=== PATIENT | male | born 1975 | race Caucasian/White ===

== ENCOUNTER 2023-06-19 14:43 | Emergency (ER) | payer MEDICAID ==
[~2023-06-19] VITALS: Ht 165.1 cm; Wt 102.6 kg
[2023-06-19] MEDS ORDERED: FLUT50SP17 ×2 (15:02→15:35)
[2023-06-19] MEDS ORDERED: QUET300T2 (15:02)
[2023-06-19] MEDS ORDERED: HALO5TAB33 (15:02)
[2023-06-19] MEDS ORDERED: BENZ1TAB5 (15:02)
[2023-06-19] MEDS ORDERED: PANT40TA29 (15:02)
[2023-06-19] MEDS ORDERED: OYST500T12 (15:02)
[2023-06-19] MEDS ORDERED: QUET200T2 (15:02)
[2023-06-19] MEDS ORDERED: PRAZ5CAP (15:02)
[2023-06-19] MEDS ORDERED: GABA-1171 (15:02)
[2023-06-19] MEDS ORDERED: ATOR40TA75 (15:02)
[2023-06-19] MEDS ORDERED: ZOLO100T (15:02)
[2023-06-19] MEDS ORDERED: PRAZ2CAP (15:02)
[2023-06-19] MEDS ORDERED: PRAZ2CAP PO (15:28)
[2023-06-19] MEDS ORDERED: PRAZ5CAP PO (15:28)
[2023-06-19] MEDS ORDERED: QUET200T2 PO (15:29)
[2023-06-19] MEDS ORDERED: SERO50TA PO (15:30)
[2023-06-19] MEDS ORDERED: SERO1TAB2 PO (15:30)
[2023-06-19] MEDS ORDERED: ZOLO100T PO (15:31)
[2023-06-19] MEDS ORDERED: ATOR40TA75 PO (15:32)
[2023-06-19] MEDS ORDERED: PANT40TA29 PO (15:33)
[2023-06-19] MEDS ORDERED: BENZ1TAB5 PO (15:33)
[2023-06-19] MEDS ORDERED: HALO5TAB33 PO (15:36)
[2023-06-19] MEDS ORDERED: OYST500T92 PO (15:38)
[2023-06-19] MEDS ORDERED: GABA-1171 PO (15:39)
[2023-06-19 16:02] VITALS: BP 131/76; TEMP 97.7; O2SAT 98
== END 2023-06-19 16:09 | disposition home or self-care (01) ==
LOC: M ED 14:43
DX: Z76.0 Encounter for issue of repeat prescription (principal); F99 Mental disorder, not otherwise specified; I10 Essential (primary) hypertension; E78.5 Hyperlipidemia, unspecified; F17.200 Nicotine dependence, unspecified, uncomplicated; Z88.8 Allergy status to other drugs, medicaments and biological substances; Z79.02 Long term (current) use of antithrombotics/antiplatelets; Z79.83 Long term (current) use of bisphosphonates; Z79.891 Long term (current) use of opiate analgesic; Z79.899 Other long term (current) drug therapy

== ENCOUNTER → 2023-09-05 | Outpatient (REF) | payer MEDICAID ==
[~2023-09-05] MED LIST: ADVI100C PO; ADVI200T PO; ATOR40TA75; ATOR40TA75 PO; BENZ1TAB5; BENZ1TAB5 PO; FLUTISP; FLUTISP NARES; GABA-1171; GABA-1171 PO; HALO5TAB33; HALO5TAB33 PO; OYST500T10 PO; OYST500T12; OYST500T92 PO; PANT40TA29; PANT40TA29 PO; PRAZ2CAP; PRAZ2CAP PO; PRAZ5CAP; PRAZ5CAP PO; QUET200T2; QUET200T2 PO; QUET300T2; QUET300T2 PO; SERO1TAB2 PO; SERO50TA PO; ZOLO100T; ZOLO100T PO
[2023-09-05 17:10] LABS: HEMOGLOBIN A1c 5.5 % (4.0-6.0)
[2023-09-05 17:33] LABS: ALBUMIN 3.5 G/DL (3.2-5.2); ALKALINE PHOSPHATASE 87 U/L (46-116); ALT/SGPT 16 U/L (7.0-40); AST/SGOT 16 U/L (<34); BILIRUBIN,TOTAL 0.3 MG/DL (0.3-1.2); BLOOD UREA NITROGEN 9 MG/DL (9-23); CALCIUM LEVEL 9.6 MG/DL (8.5-10.1); CARBON DIOXIDE LEVEL 27 MMOL/L (20-31); CHLORIDE LEVEL 104 MMOL/L (98-107); CHOLESTEROL LEVEL 266 MG/DL (<200); CHOLESTEROL RISK RATIO 7.73 (<5); GLOMERULAR FILTRATION RATE > 60.0 (>60); GLUCOSE, FASTING 104 MG/DL (60-100); HDL CHOLESTEROL 34.4 MG/DL (>40); LDL CHOLESTEROL 159.4 MG/DL (<100); NON-HDL-C 231.6 MG/DL; POTASSIUM SERUM 3.6 MMOL/L (3.5-5.1); SODIUM LEVEL 134 MMOL/L (136-145); TOTAL PROTEIN 7.2 G/DL (5.7-8.2); TRIGLYCERIDES LEVEL 361 MG/DL (<150)
[2023-09-05 17:34] LABS: THYROID STIMULATING HORMONE 1.942 uIU/ML (0.55-4.78)
[2023-09-05 17:35] LABS: TOTAL 25(OH) VITAMIN D 24.9 NG/ML (20.0-100.0)
== END ==
LOC: M LAB REF 16:28
PROVIDERS: ATTEND Nurse Practitioner Family
DX: E78.5 Hyperlipidemia, unspecified (principal); E55.9 Vitamin D deficiency, unspecified; Z13.1 Encounter for screening for diabetes mellitus

== ENCOUNTER → 2023-09-11 | Outpatient (CLI) | payer MEDICAID ==
[2023-09-11 15:23] LABS: BASO # 0.1 10^3/uL (0.0-0.2); BASO % 0.9 % (0.0-1.0); EOS # 0.2 10^3/uL (0.0-0.5); EOS % 2.3 % (0.0-3.0); HEMATOCRIT 41.6 % (42.0-52.0); HEMOGLOBIN 13.5 g/dl (13.5-17.5); LYMPH % 28.8 % (24.0-44.0); MEAN CORPUSCULAR HEMOGLOBIN 28.9 pg (27.0-33.0); MEAN CORPUSCULAR HGB CONC 32.5 g/dl (32.0-36.5); MEAN CORPUSCULAR VOLUME 89.1 fl (80.0-96.0); MONO # 0.6 10^3/uL (0.0-0.8); MONO % 8.7 % (2.0-8.0); NEUTROPHILS % 58.3 % (36.0-66.0); PLATELET COUNT, AUTOMATED 331 10^3/uL (150-450); RED BLOOD COUNT 4.67 10^6/uL (4.30-6.10); WHITE BLOOD COUNT 6.8 10^3/uL (4.0-10.0)
[2023-09-11 15:52] LABS: TESTOSTERONE 19 NG/DL (241-827)
[2023-09-11 15:53] LABS: ALBUMIN 3.4 G/DL (3.2-5.2); ALKALINE PHOSPHATASE 86 U/L (46-116); ALT/SGPT 16 U/L (7.0-40); AST/SGOT 16 U/L (<34); BILIRUBIN,TOTAL 0.3 MG/DL (0.3-1.2); BLOOD UREA NITROGEN 9 MG/DL (9-23); CALCIUM LEVEL 9.4 MG/DL (8.5-10.1); CARBON DIOXIDE LEVEL 27 MMOL/L (20-31); CHLORIDE LEVEL 102 MMOL/L (98-107); CHOLESTEROL LEVEL 270 MG/DL (<200); CHOLESTEROL RISK RATIO 7.62 (<5); CREATININE FOR GFR 0.95 MG/DL (0.70-1.30); GLOMERULAR FILTRATION RATE > 60.0 (>60); GLUCOSE, FASTING 104 MG/DL (60-100); HDL CHOLESTEROL 35.4 MG/DL (>40); LDL CHOLESTEROL 162.6 MG/DL (<100); NON-HDL-C 234.6 MG/DL; POTASSIUM SERUM 4.2 MMOL/L (3.5-5.1); SODIUM LEVEL 137 MMOL/L (136-145); TOTAL PROTEIN 6.9 G/DL (5.7-8.2); TRIGLYCERIDES LEVEL 360 MG/DL (<150)
== END ==
LOC: M PLALAB 10:08
PROVIDERS: ATTEND Nurse Practitioner Family
DX: Z51.81 Encounter for therapeutic drug level monitoring (principal); F43.0 Acute stress reaction; F65.89 Other paraphilias

== ENCOUNTER → 2023-12-16 | Outpatient (REF) | payer MEDICAID ==
[2023-12-16 18:23] LABS: ALBUMIN 3.4 G/DL (3.2-5.2); ALKALINE PHOSPHATASE 87 U/L (46-116); ALT/SGPT 16 U/L (7.0-40); AST/SGOT 18 U/L (<34); BILIRUBIN,TOTAL 0.2 MG/DL (0.3-1.2); BLOOD UREA NITROGEN 7 MG/DL (9-23); CALCIUM LEVEL 9.2 MG/DL (8.5-10.1); CARBON DIOXIDE LEVEL 26 MMOL/L (20-31); CHLORIDE LEVEL 103 MMOL/L (98-107); CHOLESTEROL LEVEL 276 MG/DL (<200); CHOLESTEROL RISK RATIO 8.02 (<5); CREATININE FOR GFR 0.83 MG/DL (0.70-1.30); GLOMERULAR FILTRATION RATE > 60.0 (>56); GLUCOSE, FASTING 92 MG/DL (60-100); HDL CHOLESTEROL 34.4 MG/DL (>40); NON-HDL-C 241.6 MG/DL; POTASSIUM SERUM 4.6 MMOL/L (3.5-5.1); SODIUM LEVEL 136 MMOL/L (136-145); TOTAL PROTEIN 6.7 G/DL (5.7-8.2); TRIGLYCERIDES LEVEL 328 MG/DL (<150)
== END ==
LOC: M LAB REF 16:30
PROVIDERS: ATTEND Physician Assistant
DX: E78.5 Hyperlipidemia, unspecified (principal)

== ENCOUNTER → 2024-01-16 | Outpatient (CLI) | payer MEDICAID | LOC: M RAD 12:20 | PROVIDERS: ATTEND Physician Assistant | DX: Z12.2 Encounter for screening for malignant neoplasm of respiratory organs (principal); F17.210 Nicotine dependence, cigarettes, uncomplicated ==

== ENCOUNTER → 2024-02-24 | Outpatient (REF) | payer MEDICAID ==
[2024-02-24 18:50] LABS: ALBUMIN 3.8 G/DL (3.2-5.2); ALKALINE PHOSPHATASE 99 U/L (46-116); ALT/SGPT 15 U/L (7.0-40); AST/SGOT 12 U/L (<34); BILIRUBIN,TOTAL 0.2 MG/DL (0.3-1.2); BLOOD UREA NITROGEN 15 MG/DL (9-23); CALCIUM LEVEL 9.8 MG/DL (8.5-10.1); CARBON DIOXIDE LEVEL 28 MMOL/L (20-31); CHLORIDE LEVEL 102 MMOL/L (98-107); CHOLESTEROL LEVEL 191 MG/DL (<200); CHOLESTEROL RISK RATIO 4.41 (<5); CREATININE FOR GFR 0.92 MG/DL (0.70-1.30); GLOMERULAR FILTRATION RATE > 60.0 (>56); GLUCOSE, FASTING 74 MG/DL (60-100); HDL CHOLESTEROL 43.3 MG/DL (>40); LDL CHOLESTEROL 81.7 MG/DL (<100); NON-HDL-C 147.7 MG/DL; POTASSIUM SERUM 4.6 MMOL/L (3.5-5.1); PROSTATIC SPECIFIC AG MONITOR 0.06 NG/ML (< 4.00); SODIUM LEVEL 136 MMOL/L (136-145); TOTAL PROTEIN 7.3 G/DL (5.7-8.2); TRIGLYCERIDES LEVEL 330 MG/DL (<150)
== END ==
LOC: M LAB REF 17:23
PROVIDERS: ATTEND Physician Assistant
DX: E78.5 Hyperlipidemia, unspecified (principal); Z12.5 Encounter for screening for malignant neoplasm of prostate; L65.9 Nonscarring hair loss, unspecified

== ENCOUNTER → 2024-04-14 | Outpatient (REF) | payer OTHER, MEDICAID ==
[2024-04-14 17:49] LABS: THYROID STIMULATING HORMONE 6.362 uIU/ML (0.55-4.78)
== END ==
LOC: M LAB REF 16:37
PROVIDERS: ATTEND Physician Assistant
DX: Z51.81 Encounter for therapeutic drug level monitoring (principal); E89.5 Postprocedural testicular hypofunction; E03.9 Hypothyroidism, unspecified

== ENCOUNTER → 2024-04-21 | Outpatient (CLI) | payer OTHER, MEDICAID | LOC: M PLALAB 12:25 | PROVIDERS: ATTEND Nurse Practitioner Family | DX: Z51.81 Encounter for therapeutic drug level monitoring (principal); Z79.899 Other long term (current) drug therapy ==

== ENCOUNTER → 2024-05-27 | Outpatient (REF) | payer OTHER | LOC: M LAB REF 16:43 | PROVIDERS: ATTEND Physician Assistant | DX: E03.9 Hypothyroidism, unspecified (principal) ==

== ENCOUNTER → 2024-08-18 | Outpatient (CLI) | payer OTHER ==
[~2024-08-18] MED LIST changes: +ELIGARD SQ; +LEVO50TA5 PO; +MM S100C PO; +NEUR100C PO; +SENN-187 PO; +TRAZ-252 PO
== END ==
LOC: M WHC 08:59
PROVIDERS: ATTEND Physician Assistant
DX: Z13.820 Encounter for screening for osteoporosis (principal)

== ENCOUNTER → 2024-08-20 | Outpatient (REF) | payer OTHER ==
[2024-08-20 18:34] LABS: ALBUMIN 3.7 G/DL (3.2-5.2); ALKALINE PHOSPHATASE 81 U/L (40-129); ALT/SGPT 25 U/L (7.0-40); AST/SGOT 15 U/L (<34); BILIRUBIN,TOTAL 0.2 MG/DL (0.3-1.2); BLOOD UREA NITROGEN 19 MG/DL (9-23); CALCIUM LEVEL 9.1 MG/DL (8.5-10.1); CARBON DIOXIDE LEVEL 26 MMOL/L (20-31); CHLORIDE LEVEL 110 MMOL/L (98-107); CHOLESTEROL LEVEL 150 MG/DL (<200); CHOLESTEROL RISK RATIO 4.13 (<5); GLOMERULAR FILTRATION RATE > 60.0 (>56); GLUCOSE, FASTING 88 MG/DL (60-100); HDL CHOLESTEROL 36.3 MG/DL (>40); LDL CHOLESTEROL 66.1 MG/DL (<100); NON-HDL-C 113.7 MG/DL; POTASSIUM SERUM 4.6 MMOL/L (3.5-5.1); SODIUM LEVEL 140 MMOL/L (136-145); TOTAL PROTEIN 7.1 G/DL (5.7-8.2); TRIGLYCERIDES LEVEL 238 MG/DL (<150)
[2024-08-20 18:39] LABS: TOTAL 25(OH) VITAMIN D 41.3 NG/ML (20.0-100.0)
== END ==
LOC: M LAB REF 16:17
PROVIDERS: ATTEND Physician Assistant
DX: E03.9 Hypothyroidism, unspecified (principal); E78.5 Hyperlipidemia, unspecified; E55.9 Vitamin D deficiency, unspecified

== ENCOUNTER 2024-08-26 06:41 | Day surgery (SDC) | payer OTHER ==
[~2024-08-26] VITALS: Ht 165.1 cm; Wt 98.9 kg
[2024-08-26] MEDS ORDERED: LIDOCAINE 2% 100MG/5ML SDV (FOR ANES.) As Ordered ONE (07:40)
[2024-08-26] MEDS ORDERED: propofoL 200 MG/20 ML VIAL As Ordered ONE (07:40)
[2024-08-26 08:00] VITALS: TEMP 96.8
[2024-08-26 08:24] VITALS: BP 120/80; O2SAT 99
== END 2024-08-26 16:25 | disposition home or self-care (01) ==
LOC: M OPP 06:41
PROVIDERS: ATTEND Surgery
DX: Z12.11 Encounter for screening for malignant neoplasm of colon (principal); K63.5 Polyp of colon; K64.0 First degree hemorrhoids; K29.70 Gastritis, unspecified, without bleeding; K29.80 Duodenitis without bleeding; R10.13 Epigastric pain; G47.30 Sleep apnea, unspecified; Z88.8 Allergy status to other drugs, medicaments and biological substances; Z79.899 Other long term (current) drug therapy; F17.210 Nicotine dependence, cigarettes, uncomplicated

== ENCOUNTER → 2024-12-17 | Outpatient (CLI) | payer OTHER | LOC: M WUC 12:40 | PROVIDERS: ATTEND Physician Assistant | DX: M25.561 Pain in right knee (principal) ==

== ENCOUNTER → 2025-02-11 | Outpatient (REF) | payer OTHER ==
[~2025-02-11] MED LIST changes: +IBUP-1022 PO; +LIDO1ADH93 TD; +METH-1164 PO
[2025-02-11 14:42] LABS: BASO # 0.0 10^3/uL (0.0-0.2); BASO % 0.4 % (0.0-1.0); EOS # 0.2 10^3/uL (0.0-0.5); EOS % 2.0 % (0.0-3.0); LYMPH # 2.8 10^3/uL (1.5-5.0); LYMPH % 30.7 % (24.0-44.0); MONO # 0.7 10^3/uL (0.0-0.8); MONO % 7.9 % (2.0-8.0); NEUTROPHILS # 5.2 10^3/uL (1.5-8.5); NEUTROPHILS % 58.1 % (36.0-66.0); PLATELET COUNT, AUTOMATED 330 10^3/uL (150-450)
[2025-02-11 14:50] LABS: ALT/SGPT 17 U/L (7.0-40); AST/SGOT 18 U/L (<34); CALCIUM LEVEL 8.9 MG/DL (8.5-10.1); CARBON DIOXIDE LEVEL 22 MMOL/L (20-31); CHLORIDE LEVEL 107 MMOL/L (98-107); CHOLESTEROL LEVEL 169 MG/DL (<200); CHOLESTEROL RISK RATIO 4.54 (<5); CREATININE FOR GFR 0.91 MG/DL (0.70-1.30); GLOMERULAR FILTRATION RATE > 90.0 (>56); LDL CHOLESTEROL 83.0 MG/DL (<100); NON-HDL-C 131.8 MG/DL; POTASSIUM SERUM 4.0 MMOL/L (3.5-5.1); SODIUM LEVEL 139 MMOL/L (136-145); TRIGLYCERIDES LEVEL 244 MG/DL (<150)
[2025-02-11 14:51] LABS: TOTAL 25(OH) VITAMIN D 37.4 NG/ML (20.0-100.0)
== END ==
LOC: M LAB REF 13:22
PROVIDERS: ATTEND Physician Assistant
DX: E78.5 Hyperlipidemia, unspecified (principal); F20.0 Paranoid schizophrenia; E55.9 Vitamin D deficiency, unspecified; E03.9 Hypothyroidism, unspecified

== ENCOUNTER 2025-02-14 08:20 | Emergency (ER) | payer OTHER ==
[~2025-02-14] VITALS: Ht 162.6 cm; Wt 95.9 kg
[~2025-02-14 08:20] MED LIST changes: -IBUP-1022 PO; -LIDO1ADH93 TD; -METH-1164 PO
[2025-02-14] MEDS: KETOROLAC 30 MG/ML 1 ML VIAL IM ONE (10:07)
[2025-02-14] MEDS: LIDOCAINE 5% PATCH TD ONE (10:07)
[2025-02-14 11:01] VITALS: O2SAT 98
[2025-02-14] MEDS ORDERED: LIDO1ADH93 TD (11:13)
[2025-02-14] MEDS ORDERED: METH-1164 PO (11:13)
[2025-02-14] MEDS ORDERED: IBUP-1022 PO (11:13)
[2025-02-14 11:21] VITALS: TEMP 97.6
[2025-02-14 11:28] VITALS: BP 156/95
== END 2025-02-14 11:29 | disposition home or self-care (01) ==
LOC: M ED 08:20
DX: M62.838 Other muscle spasm (principal); I10 Essential (primary) hypertension; E03.9 Hypothyroidism, unspecified; G47.30 Sleep apnea, unspecified; F17.200 Nicotine dependence, unspecified, uncomplicated; Z88.8 Allergy status to other drugs, medicaments and biological substances; Z79.02 Long term (current) use of antithrombotics/antiplatelets; Z79.899 Other long term (current) drug therapy
CPT/HCPCS: 73030; 96372; 99284; J1885

== ENCOUNTER 2025-02-19 10:07 | Outpatient (RCR) | payer OTHER ==
[~2025-02-19 10:07] MED LIST changes: +IBUP-1022 PO; +LIDO1ADH93 TD; +METH-1164 PO
== END 2025-03-11 ==
LOC: M PT 10:07
PROVIDERS: ATTEND Physician Assistant
DX: M25.561 Pain in right knee (principal)

== ENCOUNTER → 2025-04-15 | Outpatient (CLI) | payer OTHER ==
[~2025-04-15] MED LIST changes: -IBUP-1022 PO; +IBUP600T42 PO
[2025-04-15 13:08] LABS: PLATELET COUNT, AUTOMATED 335 10^3/uL (150-450)
[2025-04-15 13:45] LABS: TOTAL 25(OH) VITAMIN D 31.7 NG/ML (20.0-100.0)
[2025-04-15 13:46] LABS: FREE T4 1.03 NG/DL (0.89-1.76); TESTOSTERONE 13 NG/DL (241-827)
[2025-04-15 13:47] LABS: ALT/SGPT 25 U/L (7.0-40); AST/SGOT 21 U/L (<34); CALCIUM LEVEL 9.6 MG/DL (8.5-10.1); CARBON DIOXIDE LEVEL 26 MMOL/L (20-31); CHLORIDE LEVEL 106 MMOL/L (98-107); CHOLESTEROL LEVEL 174 MG/DL (<200); CHOLESTEROL RISK RATIO 4.06 (<5); CREATININE FOR GFR 0.94 MG/DL (0.70-1.30); GLOMERULAR FILTRATION RATE > 90.0 (>56); LDL CHOLESTEROL 84.8 MG/DL (<100); NON-HDL-C 131.2 MG/DL; POTASSIUM SERUM 4.6 MMOL/L (3.5-5.1); SODIUM LEVEL 141 MMOL/L (136-145); TRIGLYCERIDES LEVEL 232 MG/DL (<150)
== END ==
LOC: M WUC 08:33
PROVIDERS: ATTEND Nurse Practitioner Family
DX: Z51.81 Encounter for therapeutic drug level monitoring (principal); F65.89 Other paraphilias; Z79.899 Other long term (current) drug therapy

== ENCOUNTER → 2025-05-14 | Outpatient (REF) | payer OTHER ==
[2025-05-14 14:19] LABS: ESTIMATED AVERAGE GLUCOSE 108.0 MG/DL (60-110)
[2025-05-14 14:39] LABS: ALT/SGPT 18 U/L (7.0-40); AST/SGOT 16 U/L (<34); CALCIUM LEVEL 9.1 MG/DL (8.5-10.1); CARBON DIOXIDE LEVEL 26 MMOL/L (20-31); CHLORIDE LEVEL 105 MMOL/L (98-107); CHOLESTEROL LEVEL 168 MG/DL (<200); CHOLESTEROL RISK RATIO 4.05 (<5); CREATININE FOR GFR 1.00 MG/DL (0.70-1.30); GLOMERULAR FILTRATION RATE > 90.0 (>56); LDL CHOLESTEROL 88.4 MG/DL (<100); NON-HDL-C 126.6 MG/DL; POTASSIUM SERUM 4.7 MMOL/L (3.5-5.1); SODIUM LEVEL 135 MMOL/L (136-145); TRIGLYCERIDES LEVEL 191 MG/DL (<150)
== END ==
LOC: M LAB REF 12:53
PROVIDERS: ATTEND Student in an Organized Health Care Education/Training Program
DX: E78.5 Hyperlipidemia, unspecified (principal); R73.01 Impaired fasting glucose; E03.9 Hypothyroidism, unspecified